=== PATIENT | female | born 1960 | race Caucasian/White ===

== ENCOUNTER → 2018-02-08 | Outpatient (CLI) | payer OTHER ==
[~2018-02-08] MED LIST: ANTIVERT25 MG PO; AROMASIN25 MG PO; EFFEXOR XR75 MG PO; EFFEXOR75 MG PO; HORMONE REPLACEMENT; NORVASC10 MG PO; PRILOSEC40 MG PO; TRAZODONE HCL50 MG PO; VALIUM5 MG PO
== END | disposition home or self-care (01) ==
LOC: NUC 10:00
DX: M47.896 Other spondylosis, lumbar region (principal); M17.0 Bilateral primary osteoarthritis of knee; M19.072 Primary osteoarthritis, left ankle and foot; M19.071 Primary osteoarthritis, right ankle and foot; R93.7 Abnormal findings on diagnostic imaging of other parts of musculoskeletal system; Z17.0 Estrogen receptor positive status [ER+]; Z90.13 Acquired absence of bilateral breasts and nipples
CPT/HCPCS: 78306; A9503